=== PATIENT | female | born 1950 | race Caucasian/White ===

== ENCOUNTER → 2017-08-15 | Outpatient (CLI) | payer OTHER ==
--- NOTE | 2017-08-15 11:31 | ECHOS ---
STRESS ECHOCARDIOGRAM INDICATIONS: Chest pain. BASELINE HEART RATE: 88 BASELINE BLOOD PRESSURE: 140/94 MAXIMUM HEART RATE: 158 MAXIMUM BLOOD PRESSURE: 208/54 85% MPHR: 132 100% MPHR: 155 METS: 9.1 MAXIMUM STAGE REACHED: 3 TOTAL EXERCISE TIME: 7:30 CLINICAL INFORMATION: Baseline EKG shows sinus rhythm, normal axis, normal intervals. Patient exercised on Laci protocol for a total of 7.5 minutes achieving 9 METS, 100% of predicted maximal heart rate without chest pain. At peak exercise there was [address]-segment depression noted in the inferolateral leads and that persisted for more than 6 minutes in recovery. Baseline echo shows normal left ventricular size wall motion and systolic function. Postexercise, there is hypokinesis involving basal inferior wall. CONCLUSION: 1. Above-average exercise tolerance. 2. Abnormal stress test by EKG criteria. 3. Abnormal stress echo. CARRI / VANIA: [id number] /
== END | disposition home or self-care (01) ==
LOC: RADNMMAIN 09:42
PROVIDERS: ATTEND Family Medicine
DX: R93.1 Abnormal findings on diagnostic imaging of heart and coronary circulation (principal); R07.89 Other chest pain
CPT/HCPCS: 93351

== ENCOUNTER → 2017-08-16 | Outpatient (CLI) | payer OTHER ==
[2017-08-16 10:25] LABS: HCT 36.8 % (34.0-46.0); HGB 12.9 gm/dL (11.4-16.0); MCH 30.7 pg (25.0-35.0); MCV 87.7 fL (80.0-100.0); Mean Platelet Volume 6.8; Platelet Count 163 k/uL (150-450); RBC 4.19 m/uL (3.80-5.40); RDW 13.6 % (11.5-15.5)
[2017-08-16 10:35] LABS: Anion Gap 11 mmol/L; Blood Urea Nitrogen 13 mg/dL (7-17); Carbon Dioxide 26 mmol/L (22-30); Chloride 99 mmol/L (98-107); Potassium 4.7 mmol/L (3.5-5.1); Sodium 136 mmol/L (137-145)
== END | disposition home or self-care (01) ==
LOC: LABPAT 09:46
PROVIDERS: ATTEND Internal Medicine Cardiovascular Disease
DX: Z01.812 Encounter for preprocedural laboratory examination (principal); R07.9 Chest pain, unspecified
CPT/HCPCS: 36415; 80051; 82565; 84520; 85027

== ENCOUNTER 2017-08-19 07:40 | Day surgery (SDC) | payer OTHER ==
[2017-08-16 12:28] VITALS: BMI 24.7
[2017-08-19 08:47] LABS: Basophils % (A) 0 %; Eosinophils % (A) 1 %; HCT 36.9 % (34.0-46.0); HGB 13.1 gm/dL (11.4-16.0); Hyperchromasia Slight; Lymphocytes % (A) 30 %; MCH 30.9 pg (25.0-35.0); MCHC 35.5 g/dL (31.0-37.0); MCV 87.1 fL (80.0-100.0); Mean Platelet Volume 7.1; Monocytes # (A) 0.3 k/uL (0-1.0); Monocytes % (A) 8 %; Neutrophils # (A) 1.8 k/uL (1.3-7.7); Neutrophils % (A) 56 %; Platelet Count 149 k/uL (150-450); RBC 4.24 m/uL (3.80-5.40); RDW 13.7 % (11.5-15.5); WBC 3.2 k/uL (3.8-10.6)
[2017-08-19 08:50] VITALS: TEMP 97.7
[2017-08-19] MEDS ORDERED: MIDAZOLAM 2 MG/2 ML VIAL IV ONE (08:52)
[2017-08-19] MEDS ORDERED: SODIUM CHLORIDE 0.9% 1,000 ML IV ONE (08:52)
[2017-08-19] MEDS ORDERED: LIDOCAINE 2% INJ 20 MG/ML SQ ONE (08:53)
[2017-08-19 08:56] LABS: ALT 50 U/L (9-52); AST 35 U/L (14-36); Anion Gap 12 mmol/L; Blood Urea Nitrogen 15 mg/dL (7-17); Calcium 9.6 mg/dL (8.4-10.2); Carbon Dioxide 27 mmol/L (22-30); Chloride 104 mmol/L (98-107); Cholesterol 146 mg/dL (<200); Glucose 97 mg/dL (74-99); HDL Cholesterol 49 mg/dL (40-60); LDL Cholesterol,Calculated 77 mg/dL (0-99); Potassium 4.3 mmol/L (3.5-5.1); Sodium 143 mmol/L (137-145); Triglycerides 100 mg/dL (<150)
[2017-08-19] MEDS ORDERED: IOPAMIDOL-370 125ML BTL INJ ONE (09:06)
[2017-08-19] MEDS ORDERED: RX INFO: IV CONTRAST WAS GIVEN 1 EACH MISC MISCELLANE PRN (09:08)
[2017-08-19] MEDS ORDERED: SODIUM CHLORIDE 0.9% 1,000 ML IV SCH (09:15)
[2017-08-19 10:16] VITALS: RESP 18
--- NOTE | 2017-08-19 10:17 | CC ---
CARDIAC CATHETERIZATION REPORT REFERRING PHYSICIAN: Dr. Vega. INDICATION: Chest pain with abnormal stress test. PROCEDURE NOTE: After obtaining informed consent, left heart catheterization and coronary angiogram are performed via the right femoral artery using standard Nilson catheters. The patient tolerated the procedure well without any obvious immediate complications. Patient received moderate conscious sedation and the total sedation time was 13 minutes. HEMODYNAMICS: Left ventricular end-diastolic pressure is 8 to 10 mm. There is no significant gradient across aortic valve. LEFT VENTRICULOGRAM: Left ventriculogram is not performed. ANGIOGRAPHIC DATA: 1. Left main coronary artery: Left main coronary artery is a normal-sized vessel and is free of stenosis. Divides into left anterior descending coronary artery and circumflex coronary artery. 2. LAD and its branches, circumflex coronary artery and its branches are free of significant stenosis. 3. Circumflex coronary artery is a nondominant vessel. 4. Right coronary artery is a large dominant vessel that shows mild atherosclerotic plaque in its midportion, which at its worst seems to be 30-40% stenosis. Femoral angiogram was performed and shows moderate atherosclerotic disease involving the common femoral artery. CONCLUSIONS: 1. Mild nonobstructive disease involving right coronary artery. 2. Moderate atherosclerotic disease involving the common femoral artery. PLAN: The patient will be managed with optimal medical therapy with aspirin, statins, JOSHUA inhibitors and work on risk factor modification. She does not require any invasive procedures. She can proceed with a colonoscopy that she is to have on Saturday. MMODL / IJN: [id number] /
[2017-08-19 16:31] VITALS: BP 139/67; PULSE 60
== END 2017-08-19 16:50 | disposition home or self-care (01) ==
LOC: CATHCVL 07:40
PROVIDERS: ATTEND Internal Medicine Cardiovascular Disease
DX: I10 Essential (primary) hypertension (principal); E78.2 Mixed hyperlipidemia; Z87.891 Personal history of nicotine dependence; Z79.51 Long term (current) use of inhaled steroids; Z79.899 Other long term (current) drug therapy; Z88.2 Allergy status to sulfonamides
CPT/HCPCS: 93458; 80061; 80048; 84450; 84460; 85025; 82306; C1894; C1769; J2001; J2250; Q9967

== ENCOUNTER → 2018-03-17 | Outpatient (CLI) | payer OTHER ==
--- NOTE | 2018-03-17 11:06 | US ---
EXAMINATION TYPE: US abdomen limited DATE OF EXAM: 03/17/2018 COMPARISON: NONE CLINICAL HISTORY: R74.8 ABN Levels Of Serum Enzymes. EXAM MEASUREMENTS: Liver Length: 17.3 cm Gallbladder Wall: 0.2 cm CBD: 0.5 cm Right Kidney: 10.3 x 4.0 x 4.0 cm Pancreas: Tail obscured by overlying bowel gas, visualized portions wnl Liver: There is very subtle increased echogenicity of the hepatic parenchyma with diminished visuali zation of the portal triads most commonly relating to hepatic steatosis and limiting evaluation for u nderlying hepatic masses. Measuring upper limits of normal Gallbladder: wnl Evidence for sonographic Reyna's sign: No CBD: wnl as visualized, distal portion obscured by bowel gas Right Kidney: No hydronephrosis or masses seen IMPRESSION: Subtle increased echotexture of the hepatic parenchyma suggests mild degree of hepatic s teatosis. Correlate with serum laboratory values.
== END | disposition home or self-care (01) ==
LOC: RADUSWWP 09:16
PROVIDERS: ATTEND Family Medicine
DX: R74.8 Abnormal levels of other serum enzymes (principal)
CPT/HCPCS: 76705

== ENCOUNTER → 2021-04-21 | Outpatient (CLI) | payer BC ==
--- NOTE | 2021-04-21 09:50 | MR ---
EXAMINATION TYPE: MR iac wo/w con DATE OF EXAM: 04/21/2021 COMPARISON: None HISTORY: Left sided tinnitus and pressure. TECHNIQUE: Multiplanar, multisequence images of the brain and brainstem is performed without and with IV contras t, utilizing 6 mL intravenous Gadavist . FINDINGS: Diffusion weighted images demonstrate no evidence of a recent infarct or other diffusion ab normality. There is no extra-axial fluid collection or significant white matter signal abnormality. Generalized degenerative changes are seen and there are confluent and numerous focal areas of abnorma l signal about the white matter which are nonspecific but most likely in the basis of remote ischemic change. Abnormal signal involving the basal ganglia suggestive of remote infarct. There is no evidence of cerebellopontine angle mass or schwannoma. No pathologic enhancement within t he cerebellopontine angle. Mastoid air cells are clear. Nasopharynx and oropharynx symmetric Changes of chronic sinusitis are noted. Orbits are symmetric. Craniocervical junction maintained. The re is a partially empty sella turcica. IMPRESSION: 1. No evidence of cerebellopontine angle mass or schwannoma. 2 degenerative and diffuse nonspecific white matter changes most typical remote ischemia.
== END | disposition home or self-care (01) ==
LOC: RADMRIMAIN 08:03
PROVIDERS: ATTEND Otolaryngology
DX: H93.19 Tinnitus, unspecified ear (principal); G31.9 Degenerative disease of nervous system, unspecified
CPT/HCPCS: 70553; A9585

== ENCOUNTER → 2022-12-13 | Outpatient (CLI) | payer BC ==
--- NOTE | 2022-12-13 07:45 | US ---
EXAMINATION TYPE: US abdomen limited DATE OF EXAM: 12/13/2022 COMPARISON: 03/17/18 US abd CLINICAL INDICATION: Female, 72 years old with history of K76.0 FATTY LIVER; TECHNIQUE: Multiple sonographic images of the right upper quadrant are obtained. FINDINGS: EXAM MEASUREMENTS: Liver Length: 15.6 cm Gallbladder Wall: 0.21 cm CBD: 0.34 cm Right Kidney: 9.5 x 3.7 x 4.6 cm [employer]FT F[employer] FRAMER NOTES: Pancreas: Tail obscured by overlying bowel gas Liver: Appears wnl Gallbladder: wnl Evidence for sonographic Reyna's sign: No CBD: wnl Right Kidney: wnl IMPRESSION: No significant abnormality seen.
== END | disposition home or self-care (01) ==
LOC: RADUSWWP 07:02
PROVIDERS: ATTEND Internal Medicine Hematology & Oncology
DX: K76.0 Fatty (change of) liver, not elsewhere classified (principal); D69.6 Thrombocytopenia, unspecified; I10 Essential (primary) hypertension; Z71.3 Dietary counseling and surveillance
CPT/HCPCS: 76705

== ENCOUNTER 2023-06-12 02:12 | Observation (INO) | payer BC, MEDICARE ==
--- NOTE | 2023-06-12 02:29 | ED ---
Chest Pain HPI - General Chief Complaint: Chest Pain Stated Complaint: Chest tightness, Left Arm Pain, Acid Reflux Time Seen by Provider: 06/12/23 02:28 Source: patient, RN notes reviewed, old records reviewed Mode of arrival: ambulatory Limitations: no limitations - History of Present Illness Initial Comments: This is a 73-year-old female to the ER for evaluation today. Patient presents today for evaluation of chest pain MD Complaint: chest pain -: days(s) Onset: during rest, during exertion Pain Location: substernal, left chest Pain Radiation: LUE Severity: moderate Severity scale (1-10): 4 Quality: aching Consistency: constant Improves With: nothing Worsens With: nothing Anginal Symptoms: nausea, vomiting Other Symptoms: cough Treatments Prior to Arrival: none - Related Data Home Medications Medication Instructions Recorded Confirmed ALPRAZolam [Xanax] 0.25 mg PO DAILY PRN 08/16/17 08/16/17 Acetaminophen Tab [Tylenol Tab] 1,000 mg PO DAILY PRN 08/16/17 08/19/17 Aspirin EC [Ecotrin Low Dose] 81 mg PO DAILY 08/16/17 08/19/17 Brimonidine Tartrate [Mirvaso] 1 applic TOPICAL DAILY 08/16/17 08/19/17 Cholecalciferol [Vitamin D3] 1,000 unit PO DAILY 08/16/17 08/16/17 Erythromycin Topical [Erythromycin 1 applic TOPICAL DAILY 08/16/17 08/16/17 2% Topical Soln] Fexofenadine HCl [Catherine Allergy] 180 mg PO DAILY 08/16/17 08/16/17 Fluticasone Nasal [place] [Flonase 2 spr EA NOSTRIL DAILY PRN 08/16/17 08/16/17 Nasal [place]] Ibuprofen [Motrin Ib] 200 mg PO DAILY PRN 08/16/17 08/16/17 Lovastatin [Mevacor] 40 mg PO HS 08/16/17 08/16/17 Multivitamins, Thera [Multivitamin 1 each PO DAILY 08/16/17 08/16/17 (formulary)] Sertraline [Zoloft] 50 mg PO DAILY 08/16/17 08/16/17 lisinopriL [Zestril] 20 mg PO DAILY 08/16/17 08/16/17 Allergies Allergy/AdvReac Type Severity Reaction Status Date / Time venlafaxine [From Effexor] Allergy Severe Hallucinati Verified 06/12/23 02:16 ons Sulfa (Sulfonamide Allergy Anaphylaxis Verified 06/12/23 02:16 Antibiotics) sulfamethoxazole Allergy Diarrhea Verified 06/12/23 02:16 [From Bactrim] trimethoprim [From Bactrim] Allergy Diarrhea Verified 06/12/23 02:16 Review of Systems ROS Statement: Those systems with pertinent positive or pertinent negative responses have been documented in the HPI. ROS Other: All systems not noted in ROS Statement are negative. EKG Findings - EKG Comments: EKG Findings:: EKG sinus 66 [place] 181 QRS 80 QTc 410 - EKG Results: EKG: interpreted by [place] Past Medical History Past Medical History: Cancer, Hyperlipidemia, Hypertension, Skin Disorder Additional Past Medical History / Comment(s): ROSACEA. BREAST CANCER LT. SEASONAL ALLERGIES. BILAT TINNITUS History of Any Multi-Drug Resistant Organisms: None Reported Past Surgical History: Breast Surgery, Hysterectomy, Orthopedic Surgery Additional Past Surgical History / Comment(s): LT MASTECTOMY. ORIF RT ANKLE. COLONOSCOPY Past Anesthesia/Blood Transfusion Reactions: No Reported Reaction Past Psychological History: Anxiety Smoking Status: Never smoker Past Alcohol Use History: None Reported Past Drug Use History: None Reported - Past Family History Mother Family Medical History: Cancer Sister(s) Family Medical History: Cancer Son(s) Family Medical History: Cancer General Exam Limitations: no limitations General appearance: alert, in no apparent distress Head exam: Present: atraumatic, normocephalic, normal inspection Eye exam: Present: normal appearance, PERRL, EOMI. Absent: scleral icterus, conjunctival injection, periorbital swelling ENT exam: Present: normal exam, mucous membranes moist Neck exam: Present: normal inspection. Absent: tenderness, meningismus, lymphadenopathy Respiratory exam: Present: normal lung sounds bilaterally. Absent: respiratory distress, wheezes, rales, rhonchi, stridor Cardiovascular Exam: Present: regular rate, normal rhythm, normal heart sounds. Absent: systolic murmur, diastolic murmur, rubs, gallop, clicks GI/Abdominal exam: Present: soft, normal bowel sounds. Absent: distended, tenderness, guarding, rebound, rigid Extremities exam: Present: normal inspection, full ROM, normal capillary refill. Absent: tenderness, pedal edema, joint swelling, calf tenderness Back exam: Present: normal inspection Neurological exam: Present: alert, oriented X3, CN II-XII intact Psychiatric exam: Present: normal affect, normal mood Skin exam: Present: warm, dry, intact, normal color. Absent: rash Course Vital Signs 06/12/23 06/12/23 02:14 03:40 Temperature 97.8 F Pulse Rate 79 52 L Respiratory 18 18 Rate Blood Pressure 229/92 178/99 O2 Sat by Pulse 98 95 Oximetry - Reevaluation(s) Reevaluation #1: 06/12/23 02:34 Medical records reviewed Reevaluation #4: 06/12/23 02:34 Was pt. sent in by a medical professional or institution ([facility], [facility], urgent care, hospital, or penitentiary...) When possible be specific @ -no Did you speak to anyone other than the patient for history (EMS, parent, family, police, friend...)? What history was obtained from this source @ -no Did you review nursing and triage notes (agree or disagree)? Why? @ -agree Are old charts reviewed (outside hosp., previous admission, EMS record, old EKG, old radiological studies, urgent care reports/EKG's, penitentiary records)? Report findings @ -yes Differential Diagnosis (chest pain, altered mental status, abdominal pain women, abdominal pain men, vaginal bleeding, weakness, fever, dyspnea, syncope, headache, dizziness, GI bleed, back pain, seizure, CVA, palpatations, mental health, musculoskeletal)? @ -prior EKG interpreted by me (3pts min.). @ -yes X-rays interpreted by me (1pt min.). @ -yes negative for acute disease CT interpreted by me (1pt min.). @ -no U/S interpreted by me (1pt. min.). @ -no What testing was considered but not performed or refused? (CT, X-rays, U/S, labs)? Why? @ -none What meds were considered but not given or refused? Why? @ -none Did you discuss the management of the patient with other professionals (professionals i.e. [facility], [employer], lab, RT, psych nurse, child protective services social worker, trailer chief, teacher, aoc director intelligence officer, manager case)? Give summary @ -no Was smoking cessation discussed for >3mins.? @ -no Was critical care preformed (if so, how long)? @ -no Were there social determinants of health that impacted care today? How? (Homelessness, low income, unemployed, alcoholism, drug addiction, transportation, low edu. Level, literacy, decrease access to med. care, skilled nursing, rehab)? @ -none Was there de-escalation of care discussed even if they declined (Discuss DNR or withdrawal of care, Hospice)? DNR status @ -no What co-morbidities impacted this encounter? (DM, HTN, Smoking, COPD, CAD, Cancer, CVA, ARF, Chemo, Hep., AIDS, mental health diagnosis, sleep apnea, morbid obesity)? @ -none Was patient admitted / discharged? Hospital course, mention meds given and route, prescriptions, significant lab abnormalities, going to OR and other pertinent info. @ - Undiagnosed new problem with uncertain prognosis? @ -no Drug Therapy requiring intensive monitoring for toxicity (Heparin, Nitro, Insulin, Cardizem)? @ -no Were any procedures done? @ -no Diagnosis/symptom? @ - Acute, or Chronic, or Acute on Chronic? @ -Acute Uncomplicated (without systemic symptoms) or Complicated (systemic symptoms)? @ -Complicated Side effects of treatment? @ -no Exacerbation, Progression, or Severe Exacerbation? @ -exacerbation Poses a threat to life or bodily function? How? (Chest pain, USA, PA, pneumonia, PE, COPD, DKA, ARF, appy, cholecystitis, CVA, Diverticulitis, Homicidal, Suicidal, threat to staff... and all critical care pts) @ -yes Reevaluation #5: Differential Chest Pain: Stable Angina, Unstable Angina, STEMI, NSTEMI Aortic Dissection, Pneumothorax, Musculoskeletal, Esophageal Spasm GERD, Cholecystitis, Pancreatitis, Zoster, this is not meant to be an all-inclusive list. Disposition Clinical Impression: Chest pain Disposition: ADMITTED IP TO THIS HOSP Condition: Undetermined Is patient prescribed a controlled substance at d/c from ED?: No Referrals: Nael Vega DO [Primary Care Provider] - 1-2 days Time of Disposition: 04:40
[2023-06-12 02:30] VITALS: TEMP 97.8
[2023-06-12 02:58] LABS: HCT 39.5 % (34.0-46.0); HGB 13.6 gm/dL (11.4-16.0); MCH 29.9 pg (25.0-35.0); MCHC 34.5 g/dL (31.0-37.0); MCV 86.6 fL (80.0-100.0); Mean Platelet Volume 7.7; RBC 4.56 m/uL (3.80-5.40); RDW 13.8 % (11.5-15.5); WBC 3.7 k/uL (3.8-10.6)
[2023-06-12 03:09] LABS: ALT 35 U/L (4-34); AST 42 U/L (14-36); African American GFR (CKD) >90 (>60 ml/min/1.73 sqM); Albumin 4.8 g/dL (3.5-5.0); Alkaline Phosphatase 122 U/L (38-126); Anion Gap 6 mmol/L; Blood Urea Nitrogen 16 mg/dL (7-17); Calcium 9.9 mg/dL (8.4-10.2); Carbon Dioxide 28 mmol/L (22-30); Chloride 101 mmol/L (98-107); Glucose 122 mg/dL (74-99); Lipase 115 U/L (23-300); Magnesium 2.1 mg/dL (1.6-2.3); Non-African American GFR(CKD) 89 (>60 ml/min/1.73 sqM); Potassium 4.3 mmol/L (3.5-5.1); Sodium 135 mmol/L (137-145); Total Bilirubin 1.8 mg/dL (0.2-1.3); Total Protein 7.2 g/dL (6.3-8.2)
[2023-06-12 03:15] LABS: INR 0.9 (<1.2); Prothrombin Time 9.7 sec (10.0-12.5)
[2023-06-12 03:18] LABS: NT-Pro-B-Type Natriuretic Pept 96 pg/mL
[2023-06-12 03:53] LABS: Eosinophils # (M) 0.11 k/uL (0-0.7); Lymphocytes # (M) 1.18 k/uL (1.0-4.8); Monocytes # (M) 0.56 k/uL (0-1.0); Neutrophils # (M) 1.85 k/uL (1.3-7.7); Neutrophils % (M) 50 %; Nucleated Red Blood Cells 0 /100 WBC (0-0); Total Cells Counted 100
[2023-06-12 03:54] LABS: Platelet Count 97 k/uL (150-450)
--- NOTE | 2023-06-12 04:14 | XR ---
EXAM: XR Chest, 2 Views CLINICAL HISTORY: ITS.REASON XR Reason: Chest Pain TECHNIQUE: Frontal and lateral views of the chest. COMPARISON: No relevant prior studies available. IMPRESSION: 1. No acute cardiopulmonary abnormality.
[2023-06-12] MEDS ORDERED: ONDANSETRON 4 MG/2 ML VIAL IVP PRN (04:38)
[2023-06-12] MEDS ORDERED: NALOXONE 0.4 MG/ML 1 ML VIAL IV PRN (04:38)
[2023-06-12] MEDS ORDERED: MORPHINE SULFATE 4 MG/ML SYRINGE IV PRN (04:38)
[2023-06-12] MEDS: ASPIRIN 81 MG PO STA (05:00)
[2023-06-12] MEDS: ASPIRIN 325 MG TAB PO SCH (09:51)
[2023-06-12] MEDS: PANTOPRAZOLE 40 MG TABLET PO SCH (10:55)
[2023-06-12] MEDS: hydrALAZINE HCL 20 MG/ML 1 ML VIAL IVP STA (10:57)
[2023-06-12] MEDS: lisinopriL 20 MG TAB PO SCH (10:59)
[2023-06-12 11:05] VITALS: RESP 18
[2023-06-12] MEDS ORDERED: ALPRAZolam 0.25 MG TAB PO PRN (11:18)
[2023-06-12] MEDS ORDERED: FLUTICASONE 50MCG/SPRAY NASAL 16GM EA NOSTRIL PRN (11:18)
--- NOTE | 2023-06-12 12:11 | P.CRDCN ---
History of Present Illness Consult date: 06/12/23 Consult reason: chest pain History of present illness: History of present illness: This is a 73-year-old female with past medical history hypertension, dyslipidemia, peripheral vascular disease, coronary artery disease, remote history of breast cancer, remote history of tobacco use. Patient had an office visit with Dr. Chandni Garcia in 2019. She states she has had no recent cardiac evaluation. We have been asked to evaluate the patient for chest pain. She states that at 1 AM she woke up with regurgitation like acid reflux and then she developed pressure in the upper chest area and went to the jaw on the left arm was an achy type sensation. She sat up and she was feeling some dizziness. She subsequently developed a left-sided headache and the continued chest pressure heaviness. She took a Xanax at home that started to ease up the pain. At this time she denies having any pain. She denies any pain with deep inspiration. She does walk 1 mile 5 times per week at 3 mph. She does not experience chest pain or shortness of breath with this. She denies any history of diabetes and no history of CVA. EKG sinus rhythm Chest x-ray: No acute process WBC 3.7, hemoglobin 13.6, platelet count 97. INR 0.9. Sodium 135, potassium 4.3, creatinine 0.67. Blood sugar 122. Magnesium 2.1. Total bilirubin 1.8, AST 42, ALT 35. Alkaline phosphatase 122. Troponin negative x 1. proBNP 96. Lipase 115. Home cardiac medications: Aspirin 81 mg daily, lisinopril 20 mg daily, lovastatin 40 mg at bedtime Cardiac catheterization 08/19/[address] Chandni Garcia revealed mild nonobstructive disease involving the right coronary artery. Moderate atherosclerotic disease involving the common femoral artery. Review Of Systems: At the time of my exam: CONSTITUTIONAL: Denies fever or chills. HEENT: Denies blurred vision, vision changes, or eye pain. Denies hemoptysis CARDIOVASCULAR: Denies chest pain. Denies orthopnea. Denies PND. Denies palpitations RESPIRATORY: Denies shortness of breath. GASTROINTESTINAL: Denies abdominal pain. Denies nausea or vomiting. HEMATOLOGIC: Denies bleeding disorders. GENITOURINARY: Denies any blood in urine. SKIN: Denies pruitis. Denies rash. Physical examination: Gen: This is a 73-year-old female in no acute distress VS: reviewed HEENT: Head is atraumatic, normocephalic. Pupils equal, round. Sclerae is anicteric. NECK: Supple. No JVD. LUNGS: Clear to auscultation. No wheezes or rhonchi. No intercostal retractions. HEART: Regular rate and rhythm. No murmur. ABDOMEN: Soft No tenderness. EXTREMITIES: No pedal edema. No calf tenderness. NEUROLOGICAL: Patient is awake, alert and oriented x3. Assessment: Atypical chest pain most likely due to gastroesophageal reflux disease Hypertension Dyslipidemia Peripheral vascular disease Coronary artery disease Remote history of breast cancer Remote history of tobacco use Bicytopenia with leukopenia and thrombocytopenia Plan: Resume patient's home cardiac medications Obtain stress echocardiogram today Obtain 2-D echocardiogram and Doppler study to assess cardiac structure and function If testing is unremarkable, patient is cleared for discharge home and may follow-up in the office with Dr. Severino in 1 to 2 weeks. Thank you kindly for this consultation. Nurse practitioner note has been reviewed, I agree with documented findings and plan of care. Patient was seen and examined. Past Medical History Past Medical History: Cancer, Hyperlipidemia, Hypertension, Skin Disorder Additional Past Medical History / Comment(s): ROSACEA. BREAST CANCER LT. SEASONAL ALLERGIES. BILAT TINNITUS History of Any Multi-Drug Resistant Organisms: None Reported Past Surgical History: Breast Surgery, Hysterectomy, Orthopedic Surgery Additional Past Surgical History / Comment(s): LT MASTECTOMY. ORIF RT ANKLE. COLONOSCOPY Past Anesthesia/Blood Transfusion Reactions: No Reported Reaction Past Psychological History: Anxiety Smoking Status: Never smoker Past Alcohol Use History: None Reported Past Drug Use History: None Reported - Past Family History Mother Family Medical History: Cancer Sister(s) Family Medical History: Cancer Son(s) Family Medical History: Cancer Medications and Allergies Home Medications Medication Instructions Recorded Confirmed Type ALPRAZolam [Xanax] 0.25 mg PO TID PRN 08/16/17 06/12/23 History Aspirin EC [Ecotrin Low Dose] 81 mg PO DAILY 08/16/17 06/12/23 History Erythromycin Topical [Erythromycin 1 applic TOPICAL DAILY 08/16/17 06/12/23 History 2% Topical Soln] Fexofenadine HCl [Catherine Allergy] 180 mg PO DAILY 08/16/17 06/12/23 History Fluticasone Nasal [place] [Flonase 2 spr EA NOSTRIL DAILY PRN 08/16/17 06/12/23 History Nasal [place]] Ibuprofen [Motrin Ib] 200 mg PO DAILY PRN 08/16/17 06/12/23 History Lovastatin [Mevacor] 40 mg PO HS 08/16/17 06/12/23 History lisinopriL [Zestril] 20 mg PO DAILY 08/16/17 06/12/23 History Biotin 1000mcg 1,000 mcg PO DAILY 06/12/23 06/12/23 History Cholecalciferol [Vitamin D3 (25 25 mcg PO DAILY 06/12/23 06/12/23 History Mcg = 1000 Iu)] Multivit-Min/FA/Lycopen/Lutein 1 tab PO DAILY 06/12/23 06/12/23 History [Centrum Silver Tablet] Oxymetazoline HCl [Rhofade] 1 applic TOPICAL DAILY 06/12/23 06/12/23 History Allergies Allergy/AdvReac Type Severity Reaction Status Date / Time venlafaxine [From Effexor] Allergy Severe Hallucinati Verified 06/12/23 07:49 ons/diarrhe a Sulfa (Sulfonamide Allergy Anaphylaxis Verified 06/12/23 07:49 Antibiotics) sulfamethoxazole Allergy Swelling Verified 06/12/23 07:49 [From Bactrim] trimethoprim [From Bactrim] Allergy Swelling Verified 06/12/23 07:49 Physical Exam Vitals: Vital Signs Temp Pulse Resp BP Pulse Ox 06/12/23 06:00 60 17 161/78 100 06/12/23 04:10 53 L 15 158/85 95 06/12/23 03:40 52 L 18 178/99 95 06/12/23 02:14 97.8 F 79 18 229/92 98 Intake and Output 06/11/23 06/12/23 06/12/23 22:59 06:59 14:59 Other: Weight 61.689 kg Results 06/12/23 02:44 06/12/23 02:44 Cardiac Enzymes 06/12/23 06/12/23 Range/Units 02:44 02:44 AST 42 H (14-36) U/L Troponin I <0.012 (0.000-0.034) ng/mL Coagulation 06/12/23 Range/Units 02:44 PT 9.7 L (10.0-12.5) sec APTT 22.0 (22.0-30.0) sec CBC 06/12/23 Range/Units 02:44 WBC 3.7 L (3.8-10.6) k/uL RBC 4.56 (3.80-5.40) m/uL Hgb 13.6 (11.4-16.0) gm/dL Hct 39.5 (34.0-46.0) % Plt Count 97 L (150-450) k/uL Comprehensive Metabolic Panel 06/12/23 Range/Units 02:44 Sodium 135 L (137-145) mmol/L Potassium 4.3 (3.5-5.1) mmol/L Chloride 101 (98-107) mmol/L Carbon Dioxide 28 (22-30) mmol/L BUN 16 (7-17) mg/dL Creatinine 0.67 (0.52-1.04) mg/dL Glucose 122 H (74-99) mg/dL Calcium 9.9 (8.4-10.2) mg/dL AST 42 H (14-36) U/L ALT 35 H (4-34) U/L Alkaline Phosphatase 122 (38-126) U/L Total Protein 7.2 (6.3-8.2) g/dL Albumin 4.8 (3.5-5.0) g/dL Current Medications Generic Name Dose Route Start Last Admin Trade Name Freq PRN Reason Stop Dose Admin Aspirin 325 mg 06/12/23 09:00 Aspirin 325 Mg Tab PO DAILY KEE Morphine Sulfate 4 mg 06/12/23 04:38 Morphine Sulfate 4 Mg/Ml Syringe IV Q4HR PRN Severe Pain (Scale 7 to 10) Naloxone HCl 0.2 mg 06/12/23 04:38 Naloxone 0.4 Mg/Ml 1 Ml Vial IV Q2M PRN Opioid Reversal Ondansetron HCl 4 mg 06/12/23 04:38 Ondansetron 4 Mg/2 Ml Vial IVP Q8HR PRN Nausea And Vomiting Intake and Output 06/11/23 06/12/23 06/12/23 22:59 06:59 14:59 Other: Weight 61.689 kg 06/12/23 02:44 06/12/23 02:44
--- NOTE | 2023-06-12 12:36 | CA ---
Transthoracic Echo Report Name: Norma Almazan Age: 73 Gender: F : 1950 Exam Date: 06/12/2023 09:27 Exam Location: [place] [facility] Ht (in): 62 Wt (lb): 136 Ordering Physician: Kaylan Maldonado Attending/Referring Phys: [id number], Erica Mold Maintenance Technician Erin Ennis RCS Procedure CPT: Indications: LVF Cardiac Hx: Technical Quality: Good Contrast 1: Total Dose (mL): Contrast 2: Total Dose (mL): MEASUREMENTS (Male / Female) Normal Values 2D ECHO LV Diastolic Diameter PLAX 3.8 cm 4.2 - 5.9 / 3.9 - 5.3 cm LV Systolic Diameter PLAX 2.6 cm IVS Diastolic Thickness 0.9 cm 0.6 - 1.0 / 0.6 - 0.9 cm LVPW Diastolic Thickness 1.1 cm 0.6 - 1.0 / 0.6 - 0.9 cm LV Relative Wall Thickness 0.5 RV Internal Dim ED PLAX 2.3 cm LVOT Diameter 1.9 cm LV Diastolic Volume MOD BP 62.3 cm??? 67 - 155 / 56 - 104 cm??? LV Systolic Volume MOD BP 18.1 cm??? 22 - 58 / 19 - 49 cm??? LV Ejection Fraction MOD BP 71.0 % >= 55 % LV Cardiac Index MOD BP 1684.6 cm???/min???m??? LV Diastolic Volume MOD 4C 70.4 cm??? LV Systolic Volume MOD 4C 20.3 cm??? LV Ejection Fraction MOD 4C 71.1 % LV Cardiac Index MOD 4C 1906.1 cm???/min???m??? LV Diastolic Length 4C 7.7 cm LV Systolic Length 4C 5.6 cm LV Diastolic Volume MOD 2C 53.6 cm??? LV Systolic Volume MOD 2C 15.6 cm??? LV Ejection Fraction MOD 2C 71.0 % LV Cardiac Index MOD 2C 1449.8 cm???/min???m??? LV Diastolic Length 2C 7.4 cm LV Systolic Length 2C 5.4 cm LA Volume 52.6 cm??? 18 - 58 / 22 - 52 cm??? LA Volume Index 31.8 cm???/m??? 16 - 28 cm???/m??? DOPPLER AV Peak Velocity 133.1 cm/s AV Peak Gradient 7.1 mmHg AV Mean Velocity 89.3 cm/s AV Mean Gradient 3.6 mmHg AV Velocity Time Integral 27.8 cm LVOT Peak Velocity 113.3 cm/s LVOT Peak Gradient 5.1 mmHg LVOT Velocity Time Integral 24.8 cm LVOT Stroke Volume 72.0 cm??? LVOT Stroke Volume Index 44.4 ml/m??? LVOT Cardiac Index 2742.8 cm???/min???m??? AV Area Cont Eq vti 2.6 cm??? AV Area Cont Eq pk 2.5 cm??? MV Area PHT 3.1 cm??? Mitral E Point Velocity 72.1 cm/s Mitral A Point Velocity 104.8 cm/s Mitral E to A Ratio 0.7 MV Deceleration Time 244.4 ms PV Peak Velocity 137.6 cm/s PV Peak Gradient 7.6 mmHg FINDINGS Left Ventricle Left ventricular ejection fraction is estimated at 60-65 %. Mildly increased posterior wall thickness. Left ventricular cavity size normal. No obvious regional wall motion abnormalities. Right Ventricle Normal right ventricular size and function. Unable to assess right ventricular systolic pressure. Right Atrium Normal right atrial size. Left Atrium Mildly increased left atrial volume. Mitral Valve Structurally normal mitral valve. Mild mitral annular calcification. No mitral stenosis, regurgitation or prolapse. Aortic Valve Trileaflet aortic valve. No aortic valve stenosis or regurgitation. Tricuspid Valve Structurally normal tricuspid valve. No tricuspid stenosis. Trace tricuspid regurgitation. Pulmonic Valve No pulmonic stenosis. No pulmonic regurgitation. Pericardium No pericardial effusion. Aorta Normal size aortic root and proximal ascending aorta. CONCLUSIONS Left ventricular ejection fraction is estimated at 60-65 %. No obvious regional wall motion abnormalities. Normal right ventricular size and function. No significant valvular dysfunction Previewed by: Dr Bryon Severino (Electronically Signed) Final Date: 12 June 2023 12:35
--- NOTE | 2023-06-12 12:52 | CA ---
Stress Echo Report Norma Almazan Age: 73 Gender: F : 1950 Exam Date: 06/12/2023 10:13 Exam Location: [place] [facility] Ht (in): Wt (lb): Ordering Physician: Kaylan Maldonado Referring Physician: Erica ROBERTSON Digital Sales Representative: Ama Tobar RDCS Technologist Procedure CPT: Indication: chest pain w definity ICD-9 Codes: Rhythm: Patient History: Chest pain, palpitations and hypertension Cardiac Medications: Medications in past 24 hours: Contrast: Stress Results Protocol: Laci Total dose(mL): Exercise Duration (min:sec): Max ST Depression (mm): Angina Score: Gallagher Score: METS: 7.3 Resting HR: 76 Resting BP: 187 / 86 Peak HR: 152 Peak BP: 208 / 86 Max Predicted HR: 149 102 % Max Predicted HR Target HR: 127 Double Product: [id number] Stress Summary: BP Response: Reason for Termination: Target HR Cardiac Symptoms: NO SYMPTOMS ECG Analysis Resting ECG: Normal sinus rhythm, normal axis Stress EC.[address] depressions in inferior lead. Arrhythmia: No ectopic beats or sustained arrhythmias Echo Analysis Resting Echo: Normal global LV systolic function. No obvious regional wall motion abnormality Peak Echo Analysis: No stress-induced regional wall motion and limited. Normal augmentation of segmental systolic function MEASUREMENTS (Male/Female) Normal Values CONCLUSIONS Overall normal treadmill echo stress test Nonischemic ECG echocardiographic response to treadmill Normal hemodynamic and clinical response to exercise Fair exercise tolerance achieving 7.3 METS Hypertensive at baseline Dr Bryon Severino (Electronically Signed) Final Date: 12 June 2023 12:52
--- NOTE | 2023-06-12 14:14 | P.HPIM ---
History of Present Illness Patient is a 73-year-old female came in with complaints of chest pain. Patient is admitted for rule out acute Conn syndrome's patient symptoms are acid reflux symptoms in the upper chest area retrosternal area radiating to the jaw and left and was feeling little dizzy. EKG did not show any acute abnormality troponins were negative chest x-ray did not show any significant abnormality patient does have history of hypertension had a history of coronary artery disease with cardiac catheterization in 2018 which showed mild nonobstructive disease in right coronary artery. REVIEW OF SYSTEMS: CONSTITUTIONAL: No fever, no malaise, no fatigue. HEENT: No recent visual problems or hearing problems. Denied any sore throat. CARDIOVASCULAR: orthopnea, PND, no palpitations, no syncope. PULMONARY: No shortness of breath, no cough, no hemoptysis. GASTROINTESTINAL: No diarrhea, no nausea, no vomiting, NEUROLOGICAL: No headaches, no weakness, no numbness. HEMATOLOGICAL: Denies any bleeding or petechiae. GENITOURINARY: Denies any burning micturition, frequency, or urgency. MUSCULOSKELETAL/RHEUMATOLOGICAL: Denies any joint pain, swelling, or any muscle pain. ENDOCRINE: Denies any polyuria or polydipsia. The rest of the 14-point review of systems is negative. PHYSICAL EXAMINATION: GENERAL: The patient is alert and oriented x3, not in any acute distress. Well developed, well nourished. HEENT: Pupils are round and equally reacting to light. EOMI. No scleral icterus. No conjunctival pallor. Normocephalic, atraumatic. No pharyngeal erythema. No thyromegaly. CARDIOVASCULAR: S1 and S2 present. No murmurs, rubs, or gallops. PULMONARY: Chest is clear to auscultation, no wheezing or crackles. ABDOMEN: Soft, nontender, nondistended, normoactive bowel sounds. No palpable organomegaly. MUSCULOSKELETAL: No joint swelling or deformity. EXTREMITIES: No cyanosis, clubbing, or pedal edema. NEUROLOGICAL: Gross neurological examination did not reveal any focal deficits. SKIN: No rashes. Assessment and plan -Chest pain rule out acute coronary syndromes patient will undergo stress test if that is negative patient will be discharged May be secondary to gastroesophageal reflux disease patient will be started on Protonix -Hypertension -Hyperlipidemia -Peripheral artery disease -History of coronary disease never had any stents in the past. Patient will be discharged on Protonix if stress test is negative Past Medical History Past Medical History: Cancer, Hyperlipidemia, Hypertension, Skin Disorder Additional Past Medical History / Comment(s): ROSACEA. BREAST CANCER LT. SEASONAL ALLERGIES. BILAT TINNITUS History of Any Multi-Drug Resistant Organisms: None Reported Past Surgical History: Breast Surgery, Hysterectomy, Orthopedic Surgery Additional Past Surgical History / Comment(s): LT MASTECTOMY. ORIF RT ANKLE. COLONOSCOPY Past Anesthesia/Blood Transfusion Reactions: No Reported Reaction Past Psychological History: Anxiety Smoking Status: Never smoker Past Alcohol Use History: None Reported Past Drug Use History: None Reported - Past Family History Mother Family Medical History: Cancer Sister(s) Family Medical History: Cancer Son(s) Family Medical History: Cancer Medications and Allergies Home Medications Medication Instructions Recorded Confirmed Type ALPRAZolam [Xanax] 0.25 mg PO TID PRN 08/16/17 06/12/23 History Aspirin EC [Ecotrin Low Dose] 81 mg PO DAILY 08/16/17 06/12/23 History Erythromycin Topical [Erythromycin 1 applic TOPICAL DAILY 08/16/17 06/12/23 History 2% Topical Soln] Fexofenadine HCl [Catherine Allergy] 180 mg PO DAILY 08/16/17 06/12/23 History Fluticasone Nasal [place] [Flonase 2 spr EA NOSTRIL DAILY PRN 08/16/17 06/12/23 History Nasal [place]] Ibuprofen [Motrin Ib] 200 mg PO DAILY PRN 08/16/17 06/12/23 History Lovastatin [Mevacor] 40 mg PO HS 08/16/17 06/12/23 History lisinopriL [Zestril] 20 mg PO DAILY 08/16/17 06/12/23 History Biotin 1000mcg 1,000 mcg PO DAILY 06/12/23 06/12/23 History Cholecalciferol [Vitamin D3 (25 25 mcg PO DAILY 06/12/23 06/12/23 History Mcg = 1000 Iu)] Multivit-Min/FA/Lycopen/Lutein 1 tab PO DAILY 06/12/23 06/12/23 History [Centrum Silver Tablet] Oxymetazoline HCl [Rhofade] 1 applic TOPICAL DAILY 06/12/23 06/12/23 History Allergies Allergy/AdvReac Type Severity Reaction Status Date / Time venlafaxine [From Effexor] Allergy Severe Hallucinati Verified 06/12/23 07:49 ons/diarrhe a Sulfa (Sulfonamide Allergy Anaphylaxis Verified 06/12/23 07:49 Antibiotics) sulfamethoxazole Allergy Swelling Verified 06/12/23 07:49 [From Bactrim] trimethoprim [From Bactrim] Allergy Swelling Verified 06/12/23 07:49 Physical Exam Vitals: Vital Signs Temp Pulse Resp BP Pulse Ox 06/12/23 12:45 91 18 137/77 97 06/12/23 12:30 104 H 18 138/79 99 06/12/23 11:30 80 154/79 99 06/12/23 11:26 149/86 06/12/23 11:15 88 153/72 99 06/12/23 11:01 177/88 06/12/23 11:00 73 198/91 98 06/12/23 10:56 68 18 198/91 98 06/12/23 06:15 54 L 162/71 06/12/23 06:00 60 17 161/78 100 06/12/23 04:10 53 L 15 158/85 95 06/12/23 03:40 52 L 18 178/99 95 06/12/23 02:14 97.8 F 79 18 229/92 98 Intake and Output 06/11/23 06/12/23 06/12/23 22:59 06:59 14:59 Other: Weight 61.689 kg Results CBC & Chem 7: 06/12/23 02:44 06/12/23 02:44 Labs: Abnormal Lab Results - Last 24 Hours (Table) 06/12/23 06/12/23 06/12/23 Range/Units 02:44 02:44 02:44 WBC 3.7 L (3.8-10.6) k/uL Plt Count 97 L (150-450) k/uL PT 9.7 L (10.0-12.5) sec Sodium 135 L (137-145) mmol/L Glucose 122 H (74-99) mg/dL Total Bilirubin 1.8 H (0.2-1.3) mg/dL AST 42 H (14-36) U/L ALT 35 H (4-34) U/L
--- NOTE | 2023-06-12 14:18 | P.DS ---
Providers Date of admission: 06/12/23 04:40 Attending physician: Yusef Calero Consults: 06/12/23 04:38 Consult Physician Routine Consulting Provider: Brittany Owens Consult Reason/Comments: cp Do you want consulting provider notified?: Yes Primary care physician: [facility] Course: Patient is a 73-year-old female came in with complaints of chest pain. Patient is admitted for rule out acute Conn syndrome's patient symptoms are acid reflux symptoms in the upper chest area retrosternal area radiating to the jaw and left and was feeling little dizzy. EKG did not show any acute abnormality troponins were negative chest x-ray did not show any significant abnormality patient does have history of hypertension had a history of coronary artery disease with cardiac catheterization in 2018 which showed mild nonobstructive disease in right coronary artery. PHYSICAL EXAMINATION: GENERAL: The patient is alert and oriented x3, not in any acute distress. Well developed, well nourished. HEENT: Pupils are round and equally reacting to light. EOMI. No scleral icterus. No conjunctival pallor. Normocephalic, atraumatic. No pharyngeal erythema. No thyromegaly. CARDIOVASCULAR: S1 and S2 present. No murmurs, rubs, or gallops. PULMONARY: Chest is clear to auscultation, no wheezing or crackles. ABDOMEN: Soft, nontender, nondistended, normoactive bowel sounds. No palpable organomegaly. MUSCULOSKELETAL: No joint swelling or deformity. EXTREMITIES: No cyanosis, clubbing, or pedal edema. NEUROLOGICAL: Gross neurological examination did not reveal any focal deficits. SKIN: No rashes. Assessment and plan -Chest pain ruled out acute coronary syndromes, stress test, stress echocardiogram is negative for any inducible ischemia patient chest pain is secondary to peptic ulcer disease or gastritis -Peptic ulcer disease gastritis. Patient will be discharged on Protonix for 14 days -Hypertension -Hyperlipidemia -Peripheral artery disease -History of coronary disease never had any stents in the past. Follow-up with PCP in about a week and cardiology in about a week Patient Condition at Discharge: Undetermined Plan - Discharge Summary New Discharge Prescriptions: New Pantoprazole Sodium [Protonix] 40 mg PO AC-BRKFST #15 tab Continue Erythromycin Topical [Erythromycin 2% Topical Soln] 1 applic TOPICAL DAILY Fluticasone Nasal Tow [Flonase Nasal Tow] 2 spr EA NOSTRIL DAILY PRN PRN Reason: ALLERGIES Fexofenadine HCl [Catherine Allergy] 180 mg PO DAILY ALPRAZolam [Xanax] 0.25 mg PO TID PRN PRN Reason: Anxiety Lovastatin [Mevacor] 40 mg PO HS lisinopriL [Zestril] 20 mg PO DAILY Aspirin EC [Ecotrin Low Dose] 81 mg PO DAILY Cholecalciferol [Vitamin D3 (25 Mcg = 1000 Iu)] 25 mcg PO DAILY Oxymetazoline HCl [Rhofade] 1 applic TOPICAL DAILY Biotin 1000mcg 1,000 mcg PO DAILY Multivit-Min/FA/Lycopen/Lutein [Centrum Silver Tablet] 1 tab PO DAILY Discontinued Ibuprofen [Motrin Ib] 200 mg PO DAILY PRN PRN Reason: Pain Discharge Medication List ALPRAZolam [Xanax] 0.25 mg PO TID PRN 08/16/17 [History] Aspirin EC [Ecotrin Low Dose] 81 mg PO DAILY 08/16/17 [History] Erythromycin Topical [Erythromycin 2% Topical Soln] 1 applic TOPICAL DAILY 08/16/17 [History] Fexofenadine HCl [Catherine Allergy] 180 mg PO DAILY 08/16/17 [History] Fluticasone Nasal [place] [Flonase Nasal Tow] 2 spr EA NOSTRIL DAILY PRN 08/16/17 [History] Lovastatin [Mevacor] 40 mg PO HS 08/16/17 [History] lisinopriL [Zestril] 20 mg PO DAILY 08/16/17 [History] Biotin 1000mcg 1,000 mcg PO DAILY 06/12/23 [History] Cholecalciferol [Vitamin D3 (25 Mcg = 1000 Iu)] 25 mcg PO DAILY 06/12/23 [History] Multivit-Min/FA/Lycopen/Lutein [Centrum Silver Tablet] 1 tab PO DAILY 06/12/23 [History] Oxymetazoline HCl [Rhofade] 1 applic TOPICAL DAILY 06/12/23 [History] Pantoprazole Sodium [Protonix] 40 mg PO AC-BRKFST #15 tab 06/12/23 [Rx] Follow up Appointment(s)/Referral(s): Bryon Severino MD [Medical Doctor] - 1 Week Nael Vega DO [Primary Care Provider] - 3 Days Discharge Disposition: HOME SELF-CARE
[2023-06-12 16:12] VITALS: BP 149/89; PULSE 107
[2023-06-12] MEDS ORDERED: ATORVASTATIN 10 MG TAB PO SCH (21:00)
[2023-06-13] MEDS ORDERED: LORATADINE 10 MG TAB PO SCH (09:00)
[2023-06-13] MEDS ORDERED: ASPIRIN 81 MG PO SCH ×2 (09:00)
== END 2023-06-12 15:51 | disposition home or self-care (01) ==
LOC: EC 02:12 → 6NMEDSUR 04:40
PROVIDERS: ADMIT Hospitalist; ATTEND Hospitalist
DX: R07.89 Other chest pain (principal); K27.9 Peptic ulcer, site unspecified, unspecified as acute or chronic, without hemorrhage or perforation; K29.70 Gastritis, unspecified, without bleeding; E78.5 Hyperlipidemia, unspecified; I10 Essential (primary) hypertension; F41.9 Anxiety disorder, unspecified; I73.9 Peripheral vascular disease, unspecified; I25.10 Atherosclerotic heart disease of native coronary artery without angina pectoris; D69.6 Thrombocytopenia, unspecified; D72.819 Decreased white blood cell count, unspecified; Z85.3 Personal history of malignant neoplasm of breast; Z87.891 Personal history of nicotine dependence; Z79.82 Long term (current) use of aspirin; Z79.899 Other long term (current) drug therapy; Z88.2 Allergy status to sulfonamides
CPT/HCPCS: 96374; 99285; 36415; 93005; 93306; 93351; 83880; 80053; 83690; 83735; 84484; 85025; 85610; 85730; 71046; G0378; J0360